=== PATIENT | female | born 1955 | race Caucasian/White ===

== ENCOUNTER 2017-09-23 11:14 | Emergency (ER) | payer BC ==
[2017-09-23 11:55] LABS: BASOPHILS % (AUTO) 0.5 % (0.0-5.0); CREATININE 0.7 mg/dL (0.5-1.5); EOSINOPHILS % (AUTO) 0.3 % (0.0-8.0); HEMATOCRIT 40.8 % (36-48); LYMPHOCYTES % (AUTO) 6.2 % (21.0-51.0); MEAN CORPUSCULAR HEMOGLOBIN 30.1 pg (27.0-33.0); MEAN CORPUSCULAR HGB CONC 34.4 g/dL (32.0-36.0); MEAN CORPUSCULAR VOLUME 87.3 fL (79-99); MONOCYTES % (AUTO) 4.1 % (3.0-13.0); NEUTROPHILS % (AUTO) 88.9 % (40.0-77.0); PLATELET COUNT (AUTO) 328 K/uL (130-400); POTASSIUM 3.9 mmol/L (3.5-5.1); RED BLOOD CELL COUNT(AUTO) 4.67 MIL/uL (4.00-5.50); RED CELL DISTRIBUTION WIDTH 13.3 % (11.0-15.5)
[2017-09-23 11:59] LABS: BILIRUBIN,TOTAL 0.4 mg/dL (0.2-1.0); TOTAL PROTEIN, SERUM 7.3 g/dL (6.0-8.3)
[2017-09-23 13:53] LABS: APPEARANCE,URINE Turbid (CLEAR); BILIRUBIN,URINE Negative (NEGATIVE); COLOR,URINE Yellow (YELLOW); GLUCOSE, URINE (UA) Negative (NEGATIVE); KETONES,URINE 15 mg/dL (NEGATIVE); LEUKOCYTE ESTERASE ,URINE Negative (NEGATIVE); NITRATE,URINE Negative (NEGATIVE); OCCULT BLOOD,URINE Negative (NEGATIVE); PH,URINE 8.5 (5.0-8.0); PROTEIN,URINE Negative (NEGATIVE)
[2017-09-23 14:14] LABS: AMORPHOUS SEDIMENT,UR Moderate /LPF (None Seen); BACTERIA,URINE Few /HPF (None Seen)
[2017-09-23 14:15] LABS: RBC,URINE 0-1 /HPF (0-1); WBC,URINE 0-1 /HPF (0-1)
== END 2017-09-23 14:13 | disposition home or self-care (01) ==
LOC: EDH 11:14
DX: N83.201 Unspecified ovarian cyst, right side (principal); Z98.890 Other specified postprocedural states
CPT/HCPCS: 36415; 76856; 80053; 81001; 83690; 85025

== ENCOUNTER 2023-09-04 13:41 | Emergency (ER) | payer BC, OTHER ==
[~2023-09-04] VITALS: Ht 162.6 cm; Wt 65.8 kg
[2023-09-04 14:22] LABS: BASOPHILS # (AUTO) 0.04 K/uL (0.00-0.20); BASOPHILS % (AUTO) 0.7 % (0.0-5.0); EOSINOPHILS # (AUTO) 0.32 K/uL (0.00-0.70); EOSINOPHILS % (AUTO) 5.6 % (0.0-8.0); HEMATOCRIT 39.9 % (36-48); IMMATURE GRANULOCYTE ABSOLUTE 0.01 K/uL (0-1); LYMPHOCYTES # (AUTO) 1.7 K/uL (1.0-4.8); LYMPHOCYTES % (AUTO) 30.6 % (21.0-51.0); MEAN CORPUSCULAR HEMOGLOBIN 29.9 pg (27.0-33.0); MEAN CORPUSCULAR HGB CONC 35.1 g/dL (32.0-36.0); MEAN CORPUSCULAR VOLUME 85.3 fL (79-99); MONOCYTES # (AUTO) 0.5 K/uL (0.1-1.0); MONOCYTES % (AUTO) 8.6 % (3.0-13.0); NEUTROPHILS # (AUTO) 3.1 K/uL (1.8-7.7); NEUTROPHILS % (AUTO) 54.3 % (40.0-77.0); PLATELET COUNT (AUTO) 288 K/uL (130-400); RED BLOOD CELL COUNT(AUTO) 4.68 MIL/uL (4.00-5.50); RED CELL DISTRIBUTION WIDTH 12.4 % (11.0-15.5); WHITE BLOOD COUNT (AUTO) 5.7 K/uL (4.8-10.8)
[2023-09-04 14:35] LABS: CREATININE 0.5 mg/dL (0.5-1.0); POTASSIUM 4.3 mmol/L (3.5-5.1)
[2023-09-04 14:39] LABS: INR <= 0.93 (0.85-1.15); PROTHROMBIN TIME 10.6 SEC (9.6-11.6)
[2023-09-04 14:40] LABS: ALBUMIN 3.9 g/dL (3.5-5.0); BILIRUBIN,TOTAL 0.4 mg/dL (0.2-1.0); TOTAL PROTEIN, SERUM 6.8 g/dL (6.0-8.3)
[2023-09-04 14:41] LABS: B-TYPE NATRIURETIC PEPTIDE 49 pg/mL (0-100)
[2023-09-04 16:34] LABS: APPEARANCE,URINE CLOUDY (CLEAR); BILIRUBIN,URINE NEGATIVE (NEGATIVE); COLOR,URINE LIGHT-YELLOW (YELLOW); GLUCOSE, URINE (UA) NEGATIVE (NEGATIVE); KETONES,URINE NEGATIVE (NEGATIVE); LEUKOCYTE ESTERASE ,URINE NEGATIVE Leu/uL (NEGATIVE); NITRATE,URINE NEGATIVE (NEGATIVE); OCCULT BLOOD,URINE NEGATIVE (NEGATIVE); PROTEIN,URINE NEGATIVE (NEGATIVE); UROBILINOGEN,URINE 0.2 mg/dL (0.2-1.0)
[2023-09-04 16:40] LABS: ADD UA MICROSCOPIC YES
[2023-09-04 16:41] LABS: BACTERIA,URINE RARE /HPF (None Seen); RBC,URINE 0-1 /HPF (0-1); UNCLASSIFIED CRYSTAL 2 /HPF (None Seen); YEAST,URINE BUDDING RARE /HPF (None Seen)
[2023-09-04] MEDS: LORAZEPAM 2 MG/ML 1 ML VIAL IVP ONE (17:47)
[2023-09-04 18:10] VITALS: BP 135/74; PULSE 82; RESP 16; O2SAT 97
== END 2023-09-04 18:20 | disposition home or self-care (01) ==
LOC: EDH 13:41
DX: R07.89 Other chest pain (principal)
CPT/HCPCS: 99284; 96374; 71045; 84484 ×3; 80053; 83880; 85025; 85610; 81001; 36415; 93005 ×2; J2060